=== PATIENT | male | born 1950 | race Caucasian/White ===

== ENCOUNTER 2022-03-25 11:44 | Inpatient (IN) ==
[2022-03-25 12:25] LABS: Basophils % 0.3 %; Red Cell Distribution Width 18.2 % (11.5-14.5)
[2022-03-25 12:27] LABS: Eosinophils # 0.3 K/mcL (0.0-0.6); Eosinophils % 2.7 %; Hematocrit 16.2 % (37.5-50.1); Immature Granulocytes % 0.9 % (0-4); Lymphocytes # 1.5 K/mcL (0.6-4.6); Lymphocytes % 12.4 %; Mean Corpuscular HGB Conc 27.8 g/dL (31.6-35.5); Mean Corpuscular Hemoglobin 20.4 pg (28.0-33.3); Mean Corpuscular Volume 73.3 fL (83.0-100.0); Mean Platelet Volume 9.1 fL (9.4-12.4); Monocytes # 1.1 K/mcL (0.0-1.3); Neutrophils # 8.7 K/mcL (1.6-8.9); Nucleated Red Blood Cells 0.4 /100 WBC (0); Platelet Count 402 K/mcL (140-400); Red Blood Count 2.21 M/mcL (4.19-5.50); Segmented Neutrophils % 74.7 %; White Blood Count 11.7 K/mcL (4.3-11.1)
[2022-03-25 12:38] LABS: Hemoglobin 4.5 g/dL (12.9-16.9)
[2022-03-25 12:51] LABS: Anisocytosis 1+ (Not Present); BUN/Creatinine Ratio 29 (6-26); Blood Urea Nitrogen 38 mg/dL (8-23); Calcium 9.2 mg/dL (8.6-10.3); Carbon Dioxide 29 mEq/L (23-29); Chloride 98 mEq/L (98-107); Glucose 101 mg/dL (70-105); Hypochromasia Present (Not Present); Microcytosis Present (Not Present); Osmolality,Calculated 291 (280-300); Platelet Estimate Normal (Normal); Potassium 3.8 mEq/L (3.5-5.1); Sodium 136 mEq/L (136-145); Troponin I < 0.03 ng/mL (< 0.04); eGFR For African Americans > 60 (> 60); eGFR For Non-African Americans 53 (> 60)
[2022-03-25] MEDS ORDERED: Melatonin 3 MG TABLET PO PRN (14:27)
[2022-03-25] MEDS ORDERED: Naloxone 0.4 MG/ML INJ IVP PRN (14:27)
[2022-03-25] MEDS ORDERED: Mag Hydrox/Al Hydrox/Simeth 30 ML UDC PO PRN (14:27)
[2022-03-25] MEDS ORDERED: MOM Conc 10 ML UD.LIQ PO PRN (14:27)
[2022-03-25] MEDS ORDERED: Ondansetron ODT 4 MG TAB.RAPDIS SL PRN (14:27)
[2022-03-25] MEDS ORDERED: Iopamidol - 370 500 ML MLS IVP ONE (14:40)
[2022-03-25 16:38] LABS: Iron < 10 mcg/dL (65-175); Transferrin 359 mg/dL (203-362)
[2022-03-25] MEDS ORDERED: 0.9 % Sodium Chloride 250 ML ONE (16:46)
[2022-03-25] MEDS ORDERED: SODIUM CHLORIDE/NAHCO3/KCL/PEG 4,000 ML SOLN.RECON PO ONE (17:00)
[2022-03-25] MEDS: Pantoprazole 40 MG VIAL IVP SCH (17:17)
[2022-03-25] MEDS: Doxycycline 100 MG in 0.9 % Sodium Chloride Mini Bag 100 ML IVPB SCH (17:17)
[2022-03-25] MEDS: Metoprolol XL (24 HR) Succ 25 MG TAB.ER.24H PO SCH (18:29)
[2022-03-25] MEDS: 0.9 % Sodium Chloride 1,000 ML IVC SCH (18:34)
[2022-03-26] MEDS: Pantoprazole 40 MG VIAL IVP SCH ×2 (05:57→16:34)
[2022-03-26] MEDS: Doxycycline 100 MG in 0.9 % Sodium Chloride Mini Bag 100 ML IVPB SCH ×2 (05:58→16:33)
[2022-03-26 06:00] LABS: Segmented Neutrophils % 74.2 %
[2022-03-26 06:01] LABS: Basophils # 0.1 K/mcL (0.0-0.2); Basophils % 0.7 %; Eosinophils # 0.5 K/mcL (0.0-0.6); Eosinophils % 4.5 %; Hematocrit 20.3 % (37.5-50.1); Immature Granulocytes % 0.9 % (0-4); Lymphocytes # 1.2 K/mcL (0.6-4.6); Lymphocytes % 11.6 %; Mean Corpuscular HGB Conc 28.6 g/dL (31.6-35.5); Mean Corpuscular Hemoglobin 22.4 pg (28.0-33.3); Mean Corpuscular Volume 78.4 fL (83.0-100.0); Mean Platelet Volume 9.1 fL (9.4-12.4); Monocytes # 0.8 K/mcL (0.0-1.3); Monocytes % 8.1 %; Neutrophils # 7.6 K/mcL (1.6-8.9); Nucleated Red Blood Cells 0.7 /100 WBC (0); Platelet Count 347 K/mcL (140-400); Red Blood Count 2.59 M/mcL (4.19-5.50); Red Cell Distribution Width 18.7 % (11.5-14.5); White Blood Count 10.3 K/mcL (4.3-11.1)
[2022-03-26 06:15] LABS: Hemoglobin 5.8 g/dL (12.9-16.9)
[2022-03-26 06:18] LABS: BUN/Creatinine Ratio 24 (6-26); Blood Urea Nitrogen 26 mg/dL (8-23); Calcium 8.9 mg/dL (8.6-10.3); Carbon Dioxide 27 mEq/L (23-29); Chloride 104 mEq/L (98-107); Glucose 97 mg/dL (70-105); Osmolality,Calculated 291 (280-300); Potassium 4.1 mEq/L (3.5-5.1); Sodium 138 mEq/L (136-145); eGFR For African Americans > 60 (> 60); eGFR For Non-African Americans > 60 (> 60)
[2022-03-26 06:37] LABS: Hypochromasia Present (Not Present); Microcytosis Present (Not Present); Platelet Estimate Normal (Normal)
[2022-03-26] MEDS: 0.9 % Sodium Chloride 1,000 ML IVC SCH ×2 (08:20→21:23)
[2022-03-26] MEDS: Metoprolol XL (24 HR) Succ 25 MG TAB.ER.24H PO SCH (08:24)
[2022-03-26] MEDS ORDERED: 0.9 % Sodium Chloride 250 ML ONE (08:45)
[2022-03-26 15:14] LABS: Hematocrit 24.4 % (37.5-50.1); Hemoglobin 7.2 g/dL (12.9-16.9)
[2022-03-26 16:03] LABS: Folate > 22.3 ng/mL (3.0-16.0); Vitamin B12 867 pg/mL (250-1100)
[2022-03-26 17:33] LABS: Hematocrit 24.2 % (37.5-50.1); Hemoglobin 7.1 g/dL (12.9-16.9)
[2022-03-27] MEDS: 0.9 % Sodium Chloride 1,000 ML IVC SCH ×3 (01:32→20:56)
[2022-03-27 01:42] LABS: Hematocrit 23.9 % (37.5-50.1)
[2022-03-27] MEDS: Doxycycline 100 MG in 0.9 % Sodium Chloride Mini Bag 100 ML IVPB SCH (05:20)
[2022-03-27] MEDS: Pantoprazole 40 MG VIAL IVP SCH ×2 (05:21→17:41)
[2022-03-27 05:56] LABS: Hematocrit 22.9 % (37.5-50.1); Hemoglobin 6.6 g/dL (12.9-16.9)
[2022-03-27] MEDS ORDERED: 0.9 % Sodium Chloride 250 ML ONE (08:20)
[2022-03-27] MEDS: Metoprolol XL (24 HR) Succ 25 MG TAB.ER.24H PO SCH (08:38)
[2022-03-27 12:55] LABS: Hematocrit 25.6 % (37.5-50.1); Hemoglobin 7.4 g/dL (12.9-16.9)
[2022-03-27] MEDS: Furosemide 40 MG/4 ML VIAL IVP SCH ×2 (12:59→17:42)
[2022-03-27] MEDS ORDERED: Furosemide 40 MG in 0.9 % Sodium Chloride 50 ML IV SCH (13:00)
[2022-03-27] MEDS ORDERED: *HR* Propofol 200 MG/20 ML VIAL IVP ONE (13:18)
[2022-03-27] MEDS ORDERED: Lidocaine -MPF 2% 5 ML VIAL ONE (13:18)
[2022-03-27 18:18] LABS: Hematocrit 26.2 % (37.5-50.1); Hemoglobin 7.9 g/dL (12.9-16.9)
[2022-03-28 03:28] LABS: Hematocrit 26.3 % (37.5-50.1); Hemoglobin 7.6 g/dL (12.9-16.9)
[2022-03-28] MEDS: Pantoprazole 40 MG VIAL IVP SCH ×2 (05:18→17:22)
[2022-03-28 06:00] LABS: Hemoglobin 7.5 g/dL (12.9-16.9)
[2022-03-28 06:02] LABS: Hematocrit 25.5 % (37.5-50.1)
[2022-03-28] MEDS: Metoprolol XL (24 HR) Succ 25 MG TAB.ER.24H PO SCH (07:50)
[2022-03-28] MEDS: Furosemide 40 MG/4 ML VIAL IVP SCH ×2 (07:50→17:22)
[2022-03-28] MEDS: 0.9 % Sodium Chloride 1,000 ML IVC SCH (11:00)
[2022-03-28 13:24] LABS: Hematocrit 27.9 % (37.5-50.1); Hemoglobin 8.1 g/dL (12.9-16.9)
[2022-03-28] MEDS: Acetaminophen 325 MG TABLET PO PRN (15:41)
[2022-03-28 22:28] LABS: Hematocrit 26.9 % (37.5-50.1); Hemoglobin 7.7 g/dL (12.9-16.9)
[2022-03-29] MEDS: 0.9 % Sodium Chloride 1,000 ML IVC SCH (00:44)
[2022-03-29] MEDS: Acetaminophen 325 MG TABLET PO PRN (02:27)
[2022-03-29 04:45] LABS: Hematocrit 27.8 % (37.5-50.1); Hemoglobin 7.9 g/dL (12.9-16.9)
[2022-03-29] MEDS: Pantoprazole 40 MG VIAL IVP SCH ×2 (04:57→17:04)
[2022-03-29] MEDS: Metoprolol XL (24 HR) Succ 25 MG TAB.ER.24H PO SCH (08:30)
[2022-03-29] MEDS: Furosemide 40 MG/4 ML VIAL IVP SCH ×2 (08:30→16:04)
[2022-03-29] MEDS: *HR* Rivaroxaban 15 MG TABLET PO SCH (17:04)
[2022-03-30] MEDS: Acetaminophen 325 MG TABLET PO PRN (01:09)
[2022-03-30 10:29] VITALS: O2SAT 98
[2022-03-30] MEDS: 0.9 % Sodium Chloride 1,000 ML IVC SCH ×2 (10:36→10:38)
[2022-03-30] MEDS: Furosemide 40 MG/4 ML VIAL IVP SCH ×2 (10:37→16:29)
[2022-03-30] MEDS: *HR* Rivaroxaban 15 MG TABLET PO SCH ×2 (10:37→16:30)
[2022-03-30] MEDS: Metoprolol XL (24 HR) Succ 25 MG TAB.ER.24H PO SCH (10:37)
[2022-03-30] MEDS: Pantoprazole 40 MG VIAL IVP SCH (10:38)
[2022-03-30 14:01] LABS: BUN/Creatinine Ratio 15 (6-26); Blood Urea Nitrogen 14 mg/dL (8-23); Calcium 8.8 mg/dL (8.6-10.3); Carbon Dioxide 32 mEq/L (23-29); Chloride 98 mEq/L (98-107); Glucose 148 mg/dL (70-105); Magnesium 1.5 mg/dL (1.6-2.6); Osmolality,Calculated 287 (280-300); Potassium 3.8 mEq/L (3.5-5.1); Sodium 137 mEq/L (136-145); eGFR For African Americans > 60 (> 60); eGFR For Non-African Americans > 60 (> 60)
[2022-03-30 16:53] VITALS: BP 128/79; PULSE 125; TEMP 98.4
== END 2022-03-30 17:05 | disposition home or self-care (01) | DRG 811 ==
LOC: EMEROOARM 11:44 → 3NENU 11:44 → SUATTDRO 14:28 → 3NENU 15:10
PROVIDERS: ADMIT Internal Medicine; ATTEND Internal Medicine